=== PATIENT | female | born 1990 | race African-American/Black ===

== ENCOUNTER 2023-06-08 15:59 | Emergency (ER) | payer MEDICAID ==
[~2023-06-08] VITALS: Ht 152.4 cm; Wt 77.3 kg
[2023-06-08 18:39] VITALS: BP 141/86; PULSE 88; RESP 18; TEMP 98; O2SAT 100
[2023-06-08] MEDS ORDERED: CYCL-837 PO (19:28)
[2023-06-08] MEDS ORDERED: IBUP-1456 PO (19:28)
[2023-06-08] MEDS ORDERED: KETOROLAC TROMETH 60MG/2ML VIAL IM ONE (19:30)
[2023-06-08] MEDS ORDERED: SULF800T23 PO (19:41)
== END 2023-06-08 19:47 | disposition home or self-care (01) ==
LOC: ER 15:59
DX: S39.012A Strain of muscle, fascia and tendon of lower back, initial encounter (principal); N39.0 Urinary tract infection, site not specified; G89.29 Other chronic pain; Z98.890 Other specified postprocedural states; Z79.1 Long term (current) use of non-steroidal anti-inflammatories (NSAID); Z79.899 Other long term (current) drug therapy; X50.1XXA Overexertion from prolonged static or awkward postures, initial encounter; Y93.89 Activity, other specified; Y92.89 Other specified places as the place of occurrence of the external cause; Y99.8 Other external cause status
CPT/HCPCS: 81002; 96372; 99283; J1885

== ENCOUNTER 2023-07-27 18:37 | Emergency (ER) | payer MEDICAID ==
[~2023-07-27] VITALS: Ht 152.4 cm; Wt 79.8 kg
[~2023-07-27 18:37] MED LIST: CYCL-837 PO; IBUP-1456 PO; SULF800T23 PO
[2023-07-27 19:01] VITALS: BP 135/70; PULSE 87; RESP 18; TEMP 98.3; O2SAT 95
[2023-07-27] MEDS ORDERED: NITR-87 PO (19:11)
[2023-07-27] MEDS ORDERED: ACET500T58 PO (19:11)
== END 2023-07-27 19:15 | disposition home or self-care (01) ==
LOC: ER 18:37
DX: N39.0 Urinary tract infection, site not specified (principal); Z98.51 Tubal ligation status
CPT/HCPCS: 81002